=== PATIENT | female | born 1935 | race Caucasian/White ===

== ENCOUNTER 2021-10-23 09:11 | Emergency (ER) | payer MEDICARE, OTHER ==
[~2021-10-23 09:11] MED LIST: ATIVAN0.5 MG PO; CALCIUM MAGNES1 EACH PO; IBUPROFEN800 MG PO; NORVASC2.5 MG PO; PRINIVIL10 MG PO; PROBIOTIC1 EAC2 PO; PROTONIX 40MG T40 MG PO; TYLENOL500 MG PO
[2021-10-23 09:48] LABS: BASOPHIL 0.6 % (0-2); EOSINOPHIL 3.3 % (0-7); HCT 45.7 % (37.0-47.0); HGB 15.2 g/dl (12.5-16.0); LYMPHOCYTE 28.4 % (15-48); MCH 32.5 pg (25.0-31.0); MCHC 33.3 g/dL (32.0-36.0); MCV 97.6 fL (78.0-100.0); MONOCYTE 10.2 % (0-12); NRBC 0; PLT 220 K/uL (150-400); RBC 4.68 M/uL (4.20-5.40); RDW 12.4 % (11.5-14.0); WBC 7.9 K/uL (4.0-10.5)
[2021-10-23 10:08] LABS: ALBUMIN 4.1 g/dL (3.4-5.0); BILIRUBIN - TOTAL 0.6 mg/dL (0.2-1.0); BUN/CREAT RATIO (CALC) 20.4 RATIO; CREATININE 0.98 mg/dL (0.51-0.95); GLOBULIN (CALCULATION) 3.4 g/dL; POTASSIUM 4.4 mmol/L (3.5-5.1); TOTAL PROTEIN 7.5 g/dL (6.4-8.2)
[2021-10-23 10:12] LABS: INR 0.99 (0.9-1.2); PROTHROMBIN TIME 12.8 SECONDS (11.9-13.9); PTT 25.9 SECONDS (24.9-34.6)
[2021-10-23 10:26] LABS: CORONAVIRUS 2019 SARS-COV-2 NEGATIVE (NEGATIVE); INFLUENZA A NAA NEGATIVE (NEGATIVE)
[2021-10-23 10:30] LABS: BILIRUBIN NEGATIVE (NEGATIVE); BLOOD NEGATIVE Ery/uL (NEGATIVE); CLARITY CLEAR (CLEAR); COLOR YELLOW (YELLOW); GLUCOSE (U) NORMAL (NORMAL); LEUKOCYTES NEGATIVE Leu/uL (NEGATIVE); NITRITE NEGATIVE (NEGATIVE); PROTEIN NEGATIVE (NEGATIVE); UROBILINOGEN 0.2 mg/dL (0.2-1.0); pH 6.5 (5.0-9.0)
[2021-10-23] MEDS ORDERED: DIFLUCAN150 MG PO (13:24)
[2021-10-23] MEDS ORDERED: ANTIVERT25 MG PO (13:24)
[2021-10-23] MEDS ORDERED: AMOXICILLIN500 MG PO (13:24)
== END 2021-10-23 12:35 | disposition home or self-care (01) ==
LOC: FER 09:11
PROVIDERS: Emergency Medicine
DX: R42 Dizziness and giddiness (principal); H70.90 Unspecified mastoiditis, unspecified ear; I10 Essential (primary) hypertension; J45.909 Unspecified asthma, uncomplicated; Z91.040 Latex allergy status; Z88.1 Allergy status to other antibiotic agents; Z20.822 Contact with and (suspected) exposure to COVID-19
CPT/HCPCS: 36415; 70450; 71045; 80053; 81003; 83880; 84484; 85025; 85610; 85730; 93005; J2930; J7030; U0002